=== PATIENT | female | born 1950 | race Caucasian/White ===

== ENCOUNTER 2018-08-07 09:23 | Emergency (ER) | payer OTHER ==
[~2018-08-07] VITALS: Ht 154.9 cm; Wt 93.0 kg
[~2018-08-07 09:23] MED LIST: BLEPH-10 5 ML5 ML OS; COQ10 IN OIL 101 SGL PO; LEVSIN0.125 MG PO; LISINOPRIL20 MG PO; NAPROXEN500 MG PO; VENLAFAXINE HYD75 M1 PO; ZOCOR 40MG TAB40 MG PO; ZOFRAN 4 MG TABL4 MG PO
--- NOTE | 2018-08-07 11:39 | ED GENERAL ADULT ---
History of Present Illness General Chief Complaint: Fall Stated Complaint: LT LEG PAIN S/P FALL Source: patient Exam Limitations: no limitations Vital Signs & Intake/Output Vital Signs & Intake/Output Vital Signs Date Time Temp Pulse Resp B/P B/P Pulse O2 O2 Flow FiO2 Mean Ox Delivery Rate 08/07 0926 96.6 96 18 123/82 97 Allergies Coded Allergies: codeine (Intermediate, NAUSEA 08/07/18) tetracycline (Intermediate, NAUSEA 08/07/18) Reconcile Medications Coenzyme Q10/Vitamin E (Coq10 in Oil 100 MG-30 Iu) 1 SGL SGL 1 TAB PO D SUPPLEMENT (Reported) Lisinopril 20 MG TAB 1 TAB PO D HTN (Reported) Naproxen 500 MG TAB 1 TAB PO Q12H PRN PAIN/INFLAMMATION Naproxen (Naprosyn) 500 MG TABLET 1 TAB PO BID PRN pain Simvastatin (Zocor 40MG Tab) 40 MG TAB 1 TAB PO QPM CHOL (Reported) Sulfacetamide Sodium (Bleph-10 5 Ml) 5 ML EVAN 1 DROP OS 5 TIMES A DAY PRN PINK EYE VENLAFAXINE HCL (Venlafaxine HCl ER) 75 MG CER 1 CAP PO DAILY DEPRESSION ( Reported) Triage Note: PT TO ED S/P SLIP ON WET FLOOR ON SATURDAY, C/O LEFT CALF, LEFT INNER THIGH BRUISE, AND LEFT ANKLE BRUISING NOTED. PT AMBULATORY INTO TRIAGE WITH CANE "I KNOW NOTHING IS BROKEN I JUST WANT TO GET CHECKED OUT". Triage Nurses Notes Reviewed? yes HPI: 67-year-old female not on anticoagulation presents after a slip and fall 5 days ago. Ambulatory to the emergency department. Pain in the left lower extremity and right upper extremity. Negative for head trauma or loss of consciousness. Negative for swelling, decreased range of motion. Positive for skin changes in the left lower extremity and left knee pain. Pain does not radiate achy in nature. Past History Travel History Traveled to [place] past 21 day No Medical History Any Pertinent Medical History? see below for history Neurological: NONE EENT: cataracts Cardiovascular: hypertension, hyperlipidemia Respiratory: NONE Gastrointestinal: NONE Hepatic: NONE Renal: NONE Musculoskeletal: NONE Psychiatric: anxiety Endocrine: NONE Blood Disorders: NONE Cancer(s): NONE DIRECTOR OF GIFT PLANNING/Reproductive: NONE Surgical History Surgical History: CATARACT SURGERY BILATERALLY Psychosocial History What is your primary language Irish Tobacco Use: Quit >30 days ago ETOH Use: denies use Illicit Drug Use: denies illicit drug use Family History Hx Contributory? No Review of Systems Review of Systems Constitutional: Reports: no symptoms, see HPI. EENTM: Reports: no symptoms. Respiratory: Reports: no symptoms. Cardiovascular: Reports: no symptoms. GI: Reports: no symptoms. Genitourinary: Reports: no symptoms. Musculoskeletal: Reports: no symptoms. Skin: Reports: no symptoms. Neurological/Psychological: Reports: no symptoms. Hematologic/Endocrine: Reports: no symptoms. Immunologic/Allergic: Reports: no symptoms. All Other Systems: Reviewed and Negative Physical Exam Physical Exam General Appearance: comfortable Comments: Gen.: Well-nourished, well-developed, no acute respiratory distress. Head: Normocephalic, atraumatic, nontender. Eyes: Normal inspection bilaterally, oh, EOMI Ears: Normal inspection bilaterally Nose: Normal inspection Throat/mouth : Moist mucosa Neck: Supple, full range of motion, no goiter, nontender Heart: Regular rate and rhythm, no murmurs rubs or gallops Lungs: Clear to auscultation bilaterally with normal air entry Chest: Nontender Back: Normal range of motion, nontender Abdomen: Soft, nontender, nondistended, normal bowel sounds Pelvis: Stable and nontender Extremities: Normal range of motion grossly, no tenderness, no cyanosis clubbing or edema Neurologic: Cranial nerves grossly intact, speech is clear Skin: Hematoma posterior left thigh, anterior lateral right calf, left ankle, right medial arm. Psychiatric: Calm, cooperative, no apparent delusions or hallucinations Core Measures ACS in differential dx? No CVA/TIA Diagnosis: No Sepsis Present: No Sepsis Focused Exam Completed? No Progress Differential Diagnoses I considered the following diagnoses in my evaluation of the patient: trauma Plan of Care: Due to history and physical further imaging not indicated at this time. Initial ED EKG: none Departure Departure Disposition: HOME OR SELF CARE Condition: Stable Clinical Impression Primary Impression: Fall Qualifiers: Encounter type: initial encounter Qualified Code: W19.XXXA - Unspecified fall, initial encounter Secondary Impressions: Hematoma of left thigh Qualifiers: Encounter type: initial encounter Qualified Code: S70.12XA - Contusion of left thigh, initial encounter Leg pain, left Referrals: Saravanan Jimenez MD (PCP/Family) Departure Forms: Customer Survey General Discharge Information Prescriptions: Current Visit Scripts Naproxen (Naprosyn) 1 TAB PO BID PRN pain #30 TAB Comments Please note that there might be incidental findings in your evaluation that are unrelated to the current emergency department visit. Please notify your primary care doctor about this emergency department visit in order to obtain and review all of the testing performed so that these incidental findings can be monitored as needed. If you had an x-ray performed, please understand that some fractures may not be seen on the initial set of x-rays. If your symptoms persist you might need a repeat set of x-rays to check for such a fracture. If you had a laceration evaluated, please understand that foreign bodies such as glass or wood may not be visible to the naked eye or on plain x-rays. If the wound becomes red, swollen, increasingly more painful or if there is any drainage from the wound, please have it reevaluated by a physician for the possibility of a retained foreign body. If you're unable to follow up as outlined in the discharge instructions please return to the emergency department. Critical Care Note Critical Care Note Critical Care Time: non-applicable
[2018-08-07] MEDS ORDERED: NAPROSYN500 M1 PO (11:40)
[2018-08-07 11:55] VITALS: BP 163/69
== END 2018-08-07 12:03 ==
LOC: ERH 09:23
DX: S70.12XA Contusion of left thigh, initial encounter (principal); M79.605 Pain in left leg; I10 Essential (primary) hypertension; Z87.891 Personal history of nicotine dependence; W01.0XXA Fall on same level from slipping, tripping and stumbling without subsequent striking against object, initial encounter